=== PATIENT | female | born 1945 | race Caucasian/White ===

== ENCOUNTER 2020-02-04 10:48 | Outpatient (CLI) | payer OTHER, SELFPAY ==
--- NOTE | ~2020-02-04 | MMUS_ITS ---
EXAMINATION: MM diagnostic gudelia LT w sudeep, US breast LT limited HISTORY: Palpable left breast mass TECHNIQUE: Additional 3-D tomosynthesis images of the left breast were performed and synthetic 2-D im ages were generated. CAD analysis was submitted and interpreted. High resolution left breast ultrasou nd was performed. COMPARISON: Comparison to multiple prior studies sequentially, with oldest reviewed study dated 2014. FINDINGS: MAMMOGRAPHIC FINDINGS: Breast composed of scattered areas of fibroglandular density. There is architectural distortion in th e area of palpable concern in the mid lateral aspect the left breast. There surgical clips more poste rior in the upper outer quadrant of the left breast from previous benign biopsy. ULTRASOUND: Left breast ultrasound: At 3:00 in the area of palpable concern there is a complex hypoechoic area with dense posterior shado wing there is a small marginal hypoechoic structure along the margin of the larger area measuring 4 m m, likely benign. IMPRESSION: 1. Ill-defined heterogeneous predominantly hypoechoic mass at 3:00 in the area of palpable concern. T here is dense posterior shadowing. 2. Ultrasound-guided left breast biopsy recommended. BI-RADS category 4, suspicious findings. Reviewed, dictated and finalized at location A. IMPRESSION: 1. Ill-defined heterogeneous predominantly hypoechoic mass at 3:00 in the area of palpable concern. There is dense posterior shadowing. 2. Ultrasound-guided left breast biopsy recommended. BI-RADS category 4, suspicious findings.
== END 2020-02-04 10:49 | disposition home or self-care (01) ==
LOC: ANHIMG 10:52
PROVIDERS: PCP Internal Medicine; Visit Provider Internal Medicine
DX: N63.20 Unspecified lump in the left breast, unspecified quadrant (principal); R92.8 Other abnormal and inconclusive findings on diagnostic imaging of breast
CPT/HCPCS: 76642; 77061; 77065; G0279

== ENCOUNTER 2020-02-16 09:56 | Outpatient (CLI) | payer OTHER, SELFPAY ==
--- NOTE | ~2020-02-16 | MMUS_ITS ---
EXAMINATION: US breast biopsy LT w image, MM post biopsy invasive LT DATE: 02/16/2020 11:56 (accession [id number]), 02/16/2020 11:52 (accession [id number]) INDICATION: Left breast mass. Ultrasound-guided core biopsy is requested to evaluate for malignancy. TECHNIQUE AND FINDINGS: The risks and potential benefits of the procedure were discussed with the patient including bleeding and infection. A time out was performed. The skin of the left breast was prepared and draped in usual sterile fashion. 1% lidocaine was used for superficial anesthesia. 1% lidocaine with epinephrine was used for deep anesthesia. A vacuum-assisted biopsy gun needle was advanced through to the outer edge of the region of interest from a lateral approach utilizing sonographic guidance. A total of four tissue core samples were obta ined through the lesion. A tissue marker clip was then placed at the biopsy site. Hemostasis was achi eved. A sterile bandage was applied. The patient tolerated procedure well and there was no evidence of immediate complication. The patien t was given verbal instructions to return to the Emergency Department in the event of severe breast p ain or rapid breast enlargement. A two view left breast mammogram was obtained to document tissue mar ker clip placement. IMPRESSION: 1. Successful ultrasound-guided vacuum-assisted biopsy of left breast mass with tissue marker placeme nt. Reviewed, dictated and finalized at location A. IMPRESSION: 1. Successful ultrasound-guided vacuum-assisted biopsy of left breast mass with tissue marker placement.
== END 2020-02-16 09:57 | disposition home or self-care (01) ==
PROVIDERS: PCP Internal Medicine; Visit Provider Internal Medicine
DX: R92.8 Other abnormal and inconclusive findings on diagnostic imaging of breast (principal); C50.912 Malignant neoplasm of unspecified site of left female breast
CPT/HCPCS: 19083; 88305; 88342

== ENCOUNTER 2020-03-14 05:59 | Day surgery (SDC) | payer OTHER, SELFPAY ==
[2020-03-13 13:49] VITALS: BMI 28.1
[2020-03-14] VITALS (9 sets, daily range): BP systolic 124–147; BP diastolic 66–80; PULSE 67–75; RESP 14–23; TEMP 36.9–37.2; O2SAT 94–98; BMI 28.6
[2020-03-14 09:54] LABS: Basophils Percent Auto 0.6 % (0.2-1.2); Eosinophils Absolute Auto 0.1 K/mm3 (0-0.3); Eosinophils Percent Auto 1.4 % (0-4.4); Hematocrit 37.5 % (37.0-47.0); Hemoglobin 11.6 g/dL (12.0-15.0); Immature Granulocyte Absolute 0.01 K/mm3 (0.00-0.031); Immature Granulocyte Percent A 0.2 % (0-0.5); Lymphocytes Absolute Auto 0.98 K/mm3 (0.9-3.2); Lymphocytes Percent Auto 19.4 % (18.3-44.2); Mean Corpuscular HGB Conc 30.9 g/dl (32-36); Mean Corpuscular Hemoglobin 29.4 pg (26-34); Mean Corpuscular Volume 95.2 fl (80-100); Mean Platelet Volume 11.2 fl (7.4-10.4); Monocytes Absolute Auto 0.4 K/mm3 (0.1-0.6); Monocytes Percent Auto 7.3 % (2.6-8.5); Neutrophils Absolute Auto 3.6 K/mm3 (1.3-6.7); Neutrophils Percent Auto 71.1 % (45.5-73.1); Platelet Count Result 199 k/mm3 (150-375); Red Blood Count 3.94 M/mm3 (4.2-5.4); Red Cell Distribution Width 13.6 % (11.5-14.5); White Blood Count 5.1 K/mm3 (4.5-10.0)
[2020-03-14 10:03] LABS: INR 0.9; Prothrombin Time 11.9 Seconds (11.1-14.7)
[2020-03-14 10:07] LABS: Blood Urea Nitrogen 25 mg/dL (7-17); Calcium 9.7 mg/dL (8.4-10.2); Carbon Dioxide 31 mmol/L (22-30); Chloride 104 mmol/L (98-107); Estimated CRCL calculation 34 ml/min; Estimated Glomerular Filt Rate 40; Glucose 96 mg/dL (65-105); Potassium 3.4 mmol/L (3.4-5.0); Sodium 141 mmol/L (137-145)
--- NOTE | 2020-03-14 10:29 | WPDMODSED ---
Moderate Sedation Note-Pt Data Patient Data Allergies Allergy/AdvReac Type Severity Reaction Status Date / Time No Known Allergies Allergy Verified 03/13/20 13:42 Home Medications Medication Instructions Recorded Confirmed Type atorvastatin 40 mg tablet 40 mg PO DAILY 10/28/19 03/13/20 History hydrochlorothiazide 25 mg tablet 25 mg PO DAILY 10/28/19 03/13/20 History losartan 100 mg tablet 100 mg PO DAILY 10/28/19 03/13/20 History metoprolol succinate 100 mg 100 mg PO DAILY 10/28/19 03/13/20 History tablet,extended release 24 hr aspirin 81 mg tablet,delayed 81 mg PO DAILY 02/08/20 03/13/20 History release nitroglycerin 0.4 mg SUBLINGUAL Q5MIN PRN MDD 3 03/13/20 03/13/20 History Current Medications: Active Medications Sodium Chloride (Normal Saline Iv) 500 mls @ 100 mls/hr IV CONT .Q5H [facility] Sedation/Anesthesia: No previous sedation/anesthesia problems (including family history). [facility] Past Medical History Medical History (Updated 01/12/20 @ 12:41 by Andrea Abreu MD) Stable angina Social History Social History Smoking status: Never smoker Alcohol intake: current Gender identity (if verbalized by the patient): Female Mod Sed Physical Exam Physical Exam Pre Procedural Exam: Normal: Airway Hours since solid foods: 10 Hours since liquid intake: 10 Internal Medicine - PN: Obj Da Vital Signs Vital Signs: Vital Signs - 24 hr 03/14/20 09:53 Temperature 37.2 C Pulse Rate 70 Respiratory Rate 23 H Blood Pressure 128/66 Pulse Oximetry 96 Meds/Results Medications: Active Medications Generic Name Dose Route Start Last Admin Trade Name Freq PRN Reason Stop Dose Admin Sodium Chloride 500 mls @ 100 mls/hr 03/14/20 06:15 Normal Saline Iv IV CONT .Q5H [facility] Labs CBC & Chem 7: 03/14/20 09:19 03/14/20 09:19 Labs: Laboratory Results - last 24 hr 03/14/20 03/14/20 03/14/20 09:19 09:19 09:19 WBC 5.1 RBC 3.94 L Hgb 11.6 L Hct 37.5 MCV 95.2 MCH 29.4 MCHC 30.9 L RDW 13.6 Plt Count 199 MPV 11.2 H Immature Gran % (Auto) 0.2 Neut % (Auto) 71.1 Lymph % (Auto) 19.4 [place] % (Auto) 7.3 Eos % (Auto) 1.4 Baso % (Auto) 0.6 Lymph # (Auto) 0.98 [place] # (Auto) 0.4 Eos # (Auto) 0.1 Baso # (Auto) 0.0 Abs Immat Gran (auto) 0.01 Absolute Neuts (auto) 3.6 Absolute Nucleated RBC 0.0 Nucleated RBC % 0.0 PT 11.9 INR 0.9 Sodium 141 Potassium 3.4 Chloride 104 Carbon Dioxide 31 H BUN 25 H Creatinine 1.30 H Estim Creat Clear Calc 34 Estimated GFR 40 L Glucose 96 Calcium 9.7 ASA Classification/Sedation ASA Classification/Sedation Risks: Risks, benefits and alternatives explained and patient/family accepted plan for sedation. Patient re-evaluated immediately prior to sedation.
--- NOTE | 2020-03-14 10:30 | WPDHPUPDATE1 ---
History and Physical Update Update Date/Time: 03/14/20 10:30 History and Physical has been reviewed, including an updated exam of the patient. There are NO changes in the patient's condition. Risks, benefits, and alternatives have been discussed and questions answered. Patient agrees to proceed with procedure.
--- NOTE | 2020-03-14 11:03 | WPDCARDPROC ---
Cardiac Cath Procedure Note Date of procedure:: 03/14/20 Performing physician:: Rick Monge MD Procedure Procedure note:: LEFT HEART CATHETERIZATION AND CORONARY ANGIOGRAM REPORT DATE OF PROCEDURE: 03/14/2020 INDICATION FOR PROCEDURE: known CAD, history of LA status post PCI /stenting;occasional chest discomfort, abnormal MPI BRIEF CLINICAL HISTORY: 75-year-old female with known CAD, history of anterior LA status post PCI/ placement of 2 drug-eluting stents mid LAD on 12/17/2012. Patient was referred by Dr. Mijares for coronary angiogram in the setting of occasional chest discomfort, and abnormal MPI. Patient's MPI from from 02/09/2020 reported moderate LV systolic dysfunction, EF 34%; segmental wall motion abnormality with hypokinesis in the basal inferior, mid inferior, apical inferior segments; akinesis in the mid anteroseptal, apical anterior, apical septal segments; fixed defects in the anterior, anteroseptal and mid anterolateral yuan; ischemia in the inferior wall and mid inferolateral and apical lateral wall . Benefits and risks of the procedure were discussed with patient in the past was taking prior to the procedure. PROCEDURES PERFORMED: 1. Left heart catheterization- Selective left and right coronary angiogram; left ventriculogram and hemodynamic assessment 2. Selective right common femoral angiogram and deployment of Angio-Seal hemostatic device 3. Moderate sedation-CPT code 53199 MODERATE SEDATION: Midazolam 1 mg; fentanyl 25 mcg; Start time 1040 , Stop time 1057 ; Total [id number] time 17 minutes; Ruthy Jefferson RN was trained observer for moderate sedation. ACCESS SITE: Right common femoral artery PROCEDURE NOTE: After obtaining informed consent, patient was brought to catheterization lab and prepped and draped in a usual sterile manner. After local anesthesia with lidocaine, right common femoral artery access was taken with micropuncture needle followed by insertion of a 6 Salvadorean sheath. Selective left and right coronary angiogram was performed using 5 Salvadorean JL4 and JR4 catheters respectively. Orthogonal views were taken. Next, a 5 [place]orean pigtail catheter was advanced in the LV cavity and was flushed with normal saline. LV pressure measurement was performed. After this, left ventriculogram was performed. The catheter was flushed again, and gradient across the aortic valve was measured on the pullback of the catheter. Finally, selective right common femoral angiogram was performed followed by successful deployment of Angio-Seal vascular closure device. Patient tolerated procedure well without any immediate procedure related complications. FINDINGS: LEFT MAIN CORONARY: the left main coronary artery is a medium caliber, long vessel without significant focal stenosis. The vessel bifurcates into LAD and left circumflex branches. LEFT ANTERIOR DESCENDING ARTERY: The LAD is a medium-sized vessel in the proximal and upper mid segment; tapers and becomes diminutive vessel in the distal segment. Previously placed stents in the lower part of the proximal and mid segment are patent with minimal lumen loss. First diagonal branch is a medium-sized vessel with partial jailing of the vessel With preserved blood flow. Second diagonal branch is a medium-sized vessel without significant focal stenosis. LEFT CIRCUMFLEX ARTERY: the left circumflex artery is a medium-sized vessel, mild ectasia in the proximal segment. The vessel gives rise to medium-sized OM 1 branch, and small to medium-sized OM 2 branch without significant focal stenosis. RIGHT CORONARY ARTERY: The right coronary artery is a very large caliber, tortuous, dominant vessel;gives rise to large size PDA and PLV branches without significant focal stenosis. LEFT VENTRICULOGRAM: There was frequent ventricular ectopy during left ventriculogram. Ejection fraction is visually estimated at about 35-40%; distal anterior wall, apical and apical inferior segments are hypokin
== END 2020-03-14 14:10 | disposition home or self-care (01) ==
PROVIDERS: PCP Internal Medicine; Visit Provider Internal Medicine Cardiovascular Disease
PROC: 4A023N7 Measurement of Cardiac Sampling and Pressure, Left Heart, Percutaneous Approach (ICD-10-PCS; CPT 93452; principal; 2020-03-14 10:00)
DX: I25.10 Atherosclerotic heart disease of native coronary artery without angina pectoris (principal); R93.1 Abnormal findings on diagnostic imaging of heart and coronary circulation; I25.2 Old myocardial infarction; R07.89 Other chest pain; I34.0 Nonrheumatic mitral (valve) insufficiency; Z95.5 Presence of coronary angioplasty implant and graft; Z79.82 Long term (current) use of aspirin
CPT/HCPCS: 36415; 80048; 85025; 85610; 93458; C1760; C1887; C1894; G0269; J1644; J2250; J3010; J7040